=== PATIENT | female | born 1995 | race African-American/Black ===

== ENCOUNTER 2022-04-04 08:57 | Emergency (ER) | payer OTHER, SELFPAY | END 2022-04-04 10:15 | disposition home or self-care (01) | LOC: NAV ERS 08:57 | DX: J02.0 Streptococcal pharyngitis (principal); F17.210 Nicotine dependence, cigarettes, uncomplicated; I10 Essential (primary) hypertension | CPT/HCPCS: 87430; 87804; 99283 ==